=== PATIENT | male | born 1990 | race Caucasian/White ===

== ENCOUNTER 2019-05-05 22:07 | Emergency (ER) | payer BC ==
[~2019-05-05] VITALS: Ht 198.1 cm; Wt 132.4 kg
[2019-05-05 22:12] VITALS: BP 145/76
--- NOTE | 2019-05-05 22:29 | ER.PDOC ---
General Chief Complaint: Eye Problems Stated Complaint: VOMITING BLOOD TRAVEL OUT OF US: No Time seen by MD: 22:20 Source: patient Exam Limitations: no limitations History of Present Illness Initial Comments Sinus pain and pressure for past few days making him spit out blood. He has a history of multiple sinus infections and tells me he gets about 4-5 sinus infections a year. No fever or chills. No abdominal pain. Severity: moderate Associated Symptoms: denies symptoms Past Medical History Medical History: hypertension Surgical History: no surgical history Review of Systems Constitutional: no symptoms reported EENTM: see HPI Respiratory: no symptoms reported Cardiovascular: no symptoms reported Gastrointestinal: no symptoms reported All Other Systems: Reviewed and Negative Physical Exam General Appearance: No Apparent Distress, WD/WN EENT: other (maxillary and frontal sinus tenderness) Neck: Non-Tender, Full Range of Motion Respiratory: chest non-tender, lungs clear, normal breath sounds, no respiratory distress CVS: reg rate & rhythm, no murmur, no gallop, pulses nml, nml capillary refill Gastrointestinal: Normal Bowel Sounds, No Organomegaly, No Pulsatile Mass, Non Tender Back: Normal Inspection Extremities: Normal Range of Motion Neurologic/Psychiatric: it programmer analyst II-XII NML as Tested Skin: Normal Color Results/Orders Results/Orders Orders - YOVANA CULP MD Cbc With Auto Diff (05/05/19 22:19) Comprehensive Metabolic Panel (05/05/19 22:19) PT (05/05/19 22:19) Partial Thromboplastin Time. (05/05/19 22:19) Amoxicillin/Potassium Clav (Augmentin 87 (05/05/19 23:12) Vital Signs Date Time Temp Pulse Resp B/P (MAP) Pulse Ox O2 Delivery O2 Flow Rate FiO2 05/05/19 22:55 56 17 125/76 (92) 98 Room Air 05/05/19 22:12 98.2 63 18 99 Room Air 05/05/19 22:12 98.2 63 18 05/05/19 22:12 98.2 63 18 145/76 (99) 99 Room Air Laboratory Tests Test 05/05/19 22:28 White Blood Count 6.8 10^3/uL (4.5-11.0) Red Blood Count 5.15 10^6/uL (4.50-5.90) Hemoglobin 15.4 g/dL (13.9-16.3) Hematocrit 44.7 % (37.0-53.0) Mean Corpuscular Volume 86.8 fL (78-100) Mean Corpuscular Hemoglobin 29.9 pg (26-34) Mean Corpuscular Hemoglobin Concent 34.5 g/dL (33-37) Red Cell Distribution Width 12.5 % (11.5-14.5) Platelet Count 280 10^3/uL (150-400) Mean Platelet Volume 8.9 fL (7.8-11.0) Neutrophils (%) (Auto) 58.6 % (41.0-85.0) Lymphocytes (%) (Auto) 27.0 % (24.0-44.0) Monocytes (%) (Auto) 10.9 % (5.0-12.0) Neutrophils # (Auto) 4.0 10^3/uL (1.8-7.7) Lymphocytes # (Auto) 1.8 10^3/uL (1.0-4.8) Monocytes # (Auto) 0.7 10^3/uL (0.3-0.8) Absolute Immature Granulocyte (auto 0.02 10^3 u/L (0-2) Immature Granulocytes % 0.30 % (0.00-0.50) Eosinophils % 2.8 % (0.0-5.0) Basophils % 0.4 % (0.0-0.2) H Basophils # 0.0 10^3/uL (0.0-0.1) Eosinophil Count 0.2 10^3/uL (0.0-0.2) Prothrombin Time 12.2 SEC (9.4-11.5) H Prothrombin Time INR (Non-Therap) 1.2 Activated Partial Thromboplast Time 26.6 SEC (24.67-30.72) Sodium Level 138 mmol/L (132-145) Potassium Level 3.8 mmol/L (3.6-5.2) Chloride Level 104.0 mmol/L (96-109) Carbon Dioxide Level 24.9 mmol/L (20.0-32) Anion Gap 12.9 Blood Urea Nitrogen 12 mg/dL (7-18) Creatinine 0.90 mg/dL (0.59-1.40) Estimated GFR () 119.1 (>/=60) BUN/Creatinine Ratio 13.0 Glucose Level 92 mg/dL (70-110) Calcium Level 8.9 mg/dL (8.4-10.5) Total Bilirubin 0.8 mg/dL (0.2-1.0) Aspartate Amino Transferase (AST) 34 U/L (0-35) Alanine Aminotransferase (ALT) 66 U/L (12-78) Alkaline Phosphatase 56 U/L (50-136) Total Protein 7.2 g/dL (6.4-8.2) Albumin 3.8 g/dL (3.4-5.0) Globulin 3.4 Course Vitals & review Data Vital Sign - Last 24 Hours 05/05/19 05/05/19 05/05/19 05/05/19 22:12 22:12 22:12 22:55 Temp 98.2 98.2 98.2 Pulse 63 63 63 56 Resp 18 18 18 17 B/P (MAP) 145/76 (99) 125/76 (92) Pulse Ox 99 99 98 O2 Delivery Room Air Room Air Room Air Laboratory Tests Test 05/05/19 22:28 White Blood Count 6.8 10^3/uL Red Blood Count 5.15 10^6/uL Hemoglobin 15.4 g/dL Hematocrit 44.7 % Mean Corpuscular Volume 86.8 fL Mean Corpuscular Hemoglobin 29.9 pg Mean Corpuscular Hemoglobin Concent 34.5 g/dL Red Cell Distribution Width 12.5 % Platelet Count 280 10^3/uL Mean Platelet Volume 8.9 fL Neutrophils (%) (Auto) 58.6 % Lymphocytes (%) (Auto) 27.0 % Monocytes (%) (Auto) 10.9 % Neutrophils # (Auto) 4.0 10^3/uL Lymphocytes # (Auto) 1.8 10^3/uL Monocytes # (Auto) 0.7 10^3/uL Absolute Immature Granulocyte (auto 0.02 10^3 u/L Immature Granulocytes % 0.30 % Eosinophils % 2.8 % Basophils % 0.4 % Basophils # 0.0 10^3/uL Eosinophil Count 0.2 10^3/uL Prothrombin Time 12.2 SEC Prothrombin Time INR (Non-Therap) 1.2 Activated Partial Thromboplast Time 26.6 SEC Sodium Level 138 mmol/L Potassium Level 3.8 mmol/L Chloride Level 104.0 mmol/L Carbon Dioxide Level 24.9 mmol/L Anion Gap 12.9 Blood Urea Nitrogen 12 mg/dL Creatinine 0.90 mg/dL Estimated GFR () 119.1 BUN/Creatinine Ratio 13.0 Glucose Level 92 mg/dL Calcium Level 8.9 mg/dL Total Bilirubin 0.8 mg/dL Aspartate Amino Transf (AST/SGOT) 34 U/L Alanine Aminotransferase (ALT/SGPT) 66 U/L Alkaline Phosphatase 56 U/L Total Protein 7.2 g/dL Albumin 3.8 g/dL Globulin 3.4 O2 Sat by Pulse Oximetry: 99 Departure Time of Disposition: 23:13 Disposition: 01 HOME, SELF-CARE Impression: Primary Impression: Sinusitis, acute Condition: Stable Additional Instructions: Augmentin F/U with your PCP in 2-3 days Return to ED if worsening symptoms or concerns. Duration or Time Spent with Pa: 45 mins Problem Qualifiers Primary Impression: Sinusitis, acute Sinusitis location: unspecified location Recurrence: not specified as recurrent Qualified Codes: J01.90 - Acute sinusitis, unspecified YOVANA CULP MD May 05, 2019 22:29
[2019-05-05 22:33] LABS: BASOPHIL % 0.4 % (0.0-0.2); EOSINOPHIL # 0.2 10^3/uL (0.0-0.2); EOSINOPHIL % 2.8 % (0.0-5.0); HEMOGLOBIN 15.4 g/dL (13.9-16.3); LYMPHOCYTES # 1.8 10^3/uL (1.0-4.8); MEAN CELL HGB 29.9 pg (26-34); MEAN CELL HGB CONCENTRATION 34.5 g/dL (33-37); MEAN CORP VOLUME 86.8 fL (78-100); MEAN PLATELET VOLUME 8.9 fL (7.8-11.0); MONOCYTES # 0.7 10^3/uL (0.3-0.8); MONOCYTES % 10.9 % (5.0-12.0); NEUTROPHILS % 58.6 % (41.0-85.0); RED CELL DISTRIBUTION WIDTH 12.5 % (11.5-14.5); WHITE BLOOD CELL 6.8 10^3/uL (4.5-11.0)
[2019-05-05 22:46] LABS: CALCIUM 8.9 mg/dL (8.4-10.5); CARBON DIOXIDE 24.9 mmol/L (20.0-32)
[2019-05-05 22:55] VITALS: BP 125/76
[2019-05-05] MEDS ORDERED: AUGMENTIN 875-125 TABLET PO STA (23:12)
[2019-05-05] MEDS ORDERED: AUGMENTIN 875-125 TABLET ONE (23:13)
== END 2019-05-05 23:21 | disposition home or self-care (01) ==
LOC: EDBD 22:07 → ER 22:07
DX: J01.00 Acute maxillary sinusitis, unspecified (principal); J01.10 Acute frontal sinusitis, unspecified; R79.1 Abnormal coagulation profile; I10 Essential (primary) hypertension
CPT/HCPCS: 36415; 80053; 85025; 85610; 85730; 99284; 99285